=== PATIENT | male | born 1960 | race Caucasian/White ===

== ENCOUNTER 2018-11-07 13:30 | Inpatient (IN) | payer OTHER ==
[~2018-11-07] VITALS: Ht 182.9 cm; Wt 112.3 kg
--- NOTE | ~2018-11-07 | CON ---
[address] [address] CONSULTATION Name: ELVIA MO Room: [address] IN M.R.#: [id number] Admission: 11/07/18 Attend Phys: Octaviano Aragon MD Discharge: Date of : 58 Report #: [id number] THIS REPORT FOR: //name// CC: Hitesh Aragon HISTORY OF PRESENT ILLNESS: The patient is a pleasant 58-year-old gentleman with past medical history significant for hypertension, diabetes, who presented to the hospital with increased blood glucose. The patient went to his primary care physician's office because of progressive weakness and lethargy and was noted to have blood glucose in the 500s. He was recommended to come to the hospital. The patient's spouse at bedside reports that she began noticing a deepening of the color of his eyes. The patient also reports increased pruritus for the last one day. He also reports he had darkening of the color of urine. The patient reports 30-pound weight loss in the last month, but this is primarily attributed to diuresis. The patient was apparently admitted to another hospital with heart failure. PAST MEDICAL HISTORY: Hypertension, hyperlipidemia, diabetes. PAST SURGICAL HISTORY: Nonsignificant. FAMILY HISTORY: There is no family history of colorectal cancer or Chiang related neoplasia. SOCIAL HISTORY: The patient denies smoking, alcohol or recreational drug use. REVIEW OF SYSTEMS: A comprehensive 10-point review of systems is negative except for what is mentioned in the HPI. PHYSICAL EXAMINATION: VITAL SIGNS: Temperature 36.7, pulse rate 77, respirations 16, blood pressure 107/72, pulse ox 100%. GENERAL: The patient is alert, awake, oriented x 3. HEENT: Pupils are equal, round, reactive to light and accommodation. Mucous membranes are moist. There is no congestion. Scleral icterus is present. There is no asterixis. LUNGS: Clear to auscultation bilaterally. CARDIOVASCULAR: Rate and rhythm regular, S1, S2 present. ABDOMEN: Soft. There is no distention, guarding or rigidity. NEUROLOGIC: No focal neurological deficit. LABORATORY DATA: Hemoglobin 13.7, hematocrit 39.9, platelet count 246, WBC count 9.3. Sodium 134, potassium 3.4, chloride 93, bicarbonate 31, BUN 57, creatinine 2.0. His hemoglobin A1c is 10.4, total bilirubin 3.7, direct bilirubin 3.3, alkaline phosphatase 616. INR 1. [place] [address] CONSULTATION Name: ELVIA MO Room: [address] IN [facility]#: [id number] Admission: 11/07/18 Attend Phys: Octaviano Aragon MD Discharge: Date of : 58 Report #: [id number] ASSESSMENT AND PLAN: A pleasant 58-year-old male with past medical history of diabetes, hypertension and hyperlipidemia, who presented to the hospital with hyperglycemia. The patient was incidentally noted to have obstructive jaundice with a bilirubin greater than 3. The patient does not have any abdominal pain. I will get an MRCP to evaluate the cause of his jaundice, and I have placed him n.p.o. for ERCP tomorrow. Further recommendations will be based on the MRCP. By: 1155 [id number] Hobbs MD /nt
--- NOTE | ~2018-11-07 | PROC ---
[address] [address] PROCEDURE REPORT Name: ELVIA MO Room: [address] IN M.R.#: [id number] Admission: 11/07/18 Attend Phys: Octaviano Aragon MD Discharge: 11/12/18 Date of : 58 Report #: [id number] THIS REPORT FOR: //name// For GI report, please see the Provation report in Perceptive 7 content. By: 0653Medical Records Staff ZAK /ISRA
[~2018-11-07 13:30] MED LIST: ALDACTONE25 MG PO; CLEOCIN HCL150 MG PO; COREG25 MG PO; COZAAR 50 MG TA50 MG PO; FLONASE 0.05%50 MCG INH; FLOVENT HFA 1110 MCG NASAL; GLUCOPHAGE XR500 MG PO; GLUCOTROL XL5 MG PO; GLUMETZA500 PO; HYDROCHLOROTH12.5 M1 PO; HYDROCODONE-APA1 TA1 PO; LIPITOR10 MG PO; MINOCIN100 MG PO; NORVASC2.5 MG PO
[2018-11-07 13:40] VITALS: BP 125/67
[2018-11-07] MEDS ORDERED: LO-DOSE ASPIRIN81 M1 PO (13:46)
[2018-11-07] MEDS ORDERED: HYDRALAZINE 2525 MG PO (13:48)
[2018-11-07] MEDS ORDERED: EPLERENONE50 MG PO (13:48)
[2018-11-07] MEDS ORDERED: FARXIGA5 MG PO (13:48)
[2018-11-07] MEDS ORDERED: METOLAZONE 2.52.5 MG PO (13:50)
[2018-11-07] MEDS ORDERED: K-DUR 20 MEQ T20 MEQ PO (13:51)
[2018-11-07] MEDS ORDERED: ENTRESTO 97 MG1 EACH PO (13:52)
[2018-11-07] MEDS ORDERED: DEMADEX20 MG PO (13:52)
[2018-11-07] MEDS ORDERED: TRESIBA FL200 UNIT/1 SUBQ (13:53)
[2018-11-07 14:01] LABS: ABSOLUTE BASOPHILS 0.1 thou/uL (0.0-0.2); ABSOLUTE EOSINOPHILS 0.1 thou/uL (0.0-0.7); ABSOLUTE MONOCYTES 1.3 thou/uL (0.0-1.2); ABSOLUTE NEUTROPHILS 6.8 thou/uL (1.6-8.1); BASOPHILS 1.3 %; EOSINOPHILS 1.1 %; HEMATOCRIT 40.8 % (42.0-52.0); HEMOGLOBIN 13.8 gm/dL (14.0-18.0); LYMPHOCYTES 19.4 %; MCH 28.3 pg (26.0-34.0); MCHC 33.7 g/dL (28.0-37.0); MCV 83.9 fL (80.0-100.0); MONOCYTES 12.1 %; MPV 11.3 fl. (7.2-11.1); NUCLEATED RBCS 0 /100WBC; PLATELET COUNT* 230 thou/uL (150-400); POLYS 66.1 %; RBC 4.86 mil/uL (4.50-6.00); WBC 10.3 thou/uL (4.0-11.0)
[2018-11-07 14:08] LABS: CALCIUM 9.8 mg/dL (8.5-10.1); CREATININE 2.3 mg/dL (0.6-1.3); POTASSIUM 3.7 mmol/L (3.5-5.1)
[2018-11-07 14:09] LABS: ALBUMIN 2.5 g/dL (3.4-5.0); TOTAL BILIRUBIN 4.5 mg/dL (<0.1-1.0); TOTAL PROTEIN 8.7 g/dL (6.4-8.2)
[2018-11-07 14:20] LABS: BE 7.6 mmol/L (-2 to +3); HCO3 32.6 mmol/L (22.0-26.0); PCO2 46.4 mmHg (35.0-45.0); PO2 66.9 mmHg (75.0-100.0); pH 7.464 (7.340-7.450)
[2018-11-07 14:28] LABS: TARGET CELLS 2+
[2018-11-07 14:29] LABS: LARGE PLATELETS MODERATE
[2018-11-07 14:30] LABS: GIANT PLATELETS RARE; PLATELET ESTIMATE ADEQUATE
[2018-11-07 17:09] VITALS: BP 125/67
[2018-11-07 17:39] VITALS: BP 110/78
--- NOTE | 2018-11-07 17:51 | NUR ---
RECEIVED REPORT. PT TRANSFERRED TO ROOM 212 VIA CART. VSS. ADMISSION HISTORY AND ASSESSMENT COMPLETED CHARTED. PT ALERT AND OREITNED. PT ON 2L PER NC. IVF INFUSING PER ORDERS. BG CHECKED. PT DENIES ANY PAIN. PT ORIETNED TO ROOM AND CALL LIGHT. CALL LIGHT IS WITHIN REACH. WILL CONTINUE TO MONTIOR FOR DURATION OF SHIFT.
[2018-11-07 19:12] LABS: APTT 27.1 Seconds (25.0-31.3); PROTIME 10.6 Seconds (9.20-11.50)
[2018-11-07 19:22] LABS: ACETAMINOPHEN < 2 ug/mL (10-30); SALICYLATE < 2.8 mg/dL (2.8-20.0)
--- NOTE | 2018-11-07 23:20 | NUR ---
PT ASSESSMENT COMPLETE. PT IS ALERT & ORIENTED AND ABLE TO VOICE ALL NEEDS. PT IS UP TO BR WITH SBA AND CANE. TRACING SR ON MONITOR. VSS. PT DENIES PAIN, SOA, N/V/D. REFER TO CHARTING FOR DETAILS. HOURLY ROUNDING FOR SAFETY. CLWR.
[2018-11-08] VITALS: BP 132/77
[2018-11-08 02:12] LABS: GLYCOHEMOGLOBIN (HGB A1C) 10.4 % (4.8-5.6)
[2018-11-08 04:00] VITALS: BP 128/79
[2018-11-08 05:08] LABS: ABSOLUTE BASOPHILS 0.1 thou/uL (0.0-0.2); ABSOLUTE EOSINOPHILS 0.1 thou/uL (0.0-0.7); ABSOLUTE LYMPHOCYTES 2.3 thou/uL (0.8-5.3); ABSOLUTE MONOCYTES 0.8 thou/uL (0.0-1.2); BASOPHILS 0.7 %; EOSINOPHILS 1.2 %; HEMATOCRIT 39.9 % (42.0-52.0); HEMOGLOBIN 13.7 gm/dL (14.0-18.0); LYMPHOCYTES 24.3 %; MCH 28.3 pg (26.0-34.0); MCHC 34.4 g/dL (28.0-37.0); MCV 82.3 fL (80.0-100.0); MONOCYTES 8.9 %; MPV 11.2 fl. (7.2-11.1); NUCLEATED RBCS 0 /100WBC; PLATELET COUNT* 246 thou/uL (150-400); POLYS 64.9 %; RBC 4.85 mil/uL (4.50-6.00); RDW-CV 15.9 % (10.5-14.5); WBC 9.3 thou/uL (4.0-11.0)
[2018-11-08 05:25] LABS: ALBUMIN 2.4 g/dL (3.4-5.0); ALKALINE PHOSPHATASE 616 U/L (46-116); ANION GAP 10 mmol/L (7-16); BUN 57 mg/dL (7-18); CALCIUM 9.3 mg/dL (8.5-10.1); CHLORIDE 93 mmol/L (98-107); CHOLESTEROL 254 mg/dL (<200); CO2 31 mmol/L (21-32); DIRECT BILIRUBIN 3.3 mg/dL (<0.1-0.3); GLUCOSE 254 mg/dL (70-99); HDL CHOLESTEROL 31 mg/dL (>40); LDL CHOLESTEROL 193 mg/dL (<100); POTASSIUM 3.4 mmol/L (3.5-5.1); SGOT 37 U/L (15-37); SGPT 50 U/L (30-65); SODIUM 134 mmol/L (136-145); TC:HDL 8.2 Ratio (Not establshd); TOTAL BILIRUBIN 3.7 mg/dL (<0.1-1.0); TOTAL PROTEIN 8.3 g/dL (6.4-8.2); TRIGLYCERIDE 154 mg/dL (<150); VLDL 31 mg/dL (<40)
[2018-11-08 05:29] LABS: SERUM ASSESSMENT CLEAR
[2018-11-08 05:40] LABS: PLATELET ESTIMATE ADEQUATE
[2018-11-08 05:41] LABS: ANISOCYTOSIS 1+; GIANT PLATELETS OCCASIONAL; HYPOCHROMASIA Occasional; POIKILOCYTOSIS 1+; TARGET CELLS Occasional
[2018-11-08 07:51] VITALS: BP 107/72
--- NOTE | 2018-11-08 08:00 | NUR ---
RECEIVED REPORT. ASSUMED CARE OF PT AT 0730. VSS. CARDIAC MONITORING IN PLACE SR. AM ASSESSMENT AND VITALS COMPLETED CHARTED. PT ALERT AND OREINTED. PT ON RA. IV SALINE LOCKED. PT SITTING UP AT EDGE OF BED THIS AM. PT DENIES ANY PAIN OR DISCOMFORT THIS AM. PT INFORMED OF PLAN OF CARE. CALL LIGHT IS WITHIN REACH. WILL CONTINUE TO MONITOR FOR DURATION OF SHIFT.
[2018-11-08 12:30] LABS: URINE BILIRUBIN NEGATIVE (Negative); URINE BLOOD NEGATIVE (Negative); URINE CLARITY CLEAR; URINE COLOR YELLOW; URINE GLUCOSE-RANDOM NEGATIVE (Negative); URINE KETONES NEGATIVE (Negative); URINE LEUKOCYTES-REFLEX NEGATIVE (Negative); URINE NITRITE-REFLEX NEGATIVE (Negative); URINE PROTEIN NEGATIVE (Negative)
--- NOTE | 2018-11-08 15:06 | NUR ---
Pt is A&O. Resides at home with his . Pt states that his completes most ADLs, Pt is able to bath and groom himself, but family is available to assist as needed. Pt has a cane that he uses for mobility. No hx of HH or SNF. CM inquired into why Pt was not taking his insulin at home. Pt stated that the insulin was in the refrigerator, stated that he just did not take it. Pt confirmed that he is normally able to afford his medications without issue. CM spoke with via phone. states that she works and isn't always at home when he is to take his insulin, she stated that he normally takes it as ordered, but stated that me may have missed it d/t not feeling well. confirmed that they are able to afford Pt's medications. CM following.
--- NOTE | 2018-11-08 15:20 | 2DMMODE ---
[place] [address] 2 D/M-MODE ECHOCARDIOGRAM Name: ELVIA MO Room: [address] IN [facility]#: [id number] Admission: 11/07/18 Attend Phys: Octaviano Aragon MD Discharge: Date of : 58 Date of Service: 11/08/18 1520 Report #: [id number] THIS REPORT FOR: //name// ADDENDUM APPROVED REPORT Study performed: 11/08/2018 11:02:16 EXAM: Comprehensive 2D, Doppler, and color-flow Echocardiogram Patient Location: In-Patient Room #: [facility] Status: routine BSA: 2.29 HR: 74 bpm BP: 107/72 mmHg Rhythm: NSR Other Information Study Quality: Good Indications Congestive Heart Failure 2D Dimensions IVSd: 17.39 (7-11mm) LVOT Diam: 21.38 (18-24mm) LVDd: 45.07 mm PWd: 13.84 (7-11mm) Ascending Ao: 35.43 (22-36mm) LVDs: 32.62 (25-40mm) Aortic Root: 32.38 mm Volumes Left Atrial Volume (Systole) LA ESV Index: 40.00 mL/m2 Aortic Valve AoV Peak Nas.: 1.65 m/s AO Peak Gr.: 10.89 mmHg LVOT Max P.02 mmHg AO Mean Gr.: 6.05 mmHg LVOT Mean P.07 mmHg LVOT Max V: 1.32 m/s AO V2 VTI: 25.56 cm LVOT Mean V: 0.78 m/s OLESYA (VTI): 3.61 cm2 LVOT V1 VTI: 25.68 cm Mitral Valve E/A Ratio: 1.11 MV Decel. Time: 194.76 ms MV E Max Nas.: 0.80 m/[place] [address] 2 D/M-MODE ECHOCARDIOGRAM Name: ELVIA MO Room: [address] IN .R.#: [id number] Admission: 11/07/18 Attend Phys: Octaviano Aragon MD Discharge: Date of : 58 Date of Service: 11/08/18 1520 Report #: [id number] MV PHT: 56.48 ms MVA (PHT): 3.90 cm2 TDI E/Lateral E': 8.89 E/Medial E': 16.00 Medial E' Nas.: 0.05 m/s Lateral E' Nas.: 0.09 m/s Pulmonary Valve PV Peak Nas.: 1.02 m/s PV Peak Gr.: 4.19 mmHg Tricuspid Valve RAP Estimate: 5.00 mmHg TR Peak Gr.: 29.18 mmHg RVSP: 34.00 mmHg PA Pressure: 34.00 mmHg Left Ventricle The left ventricle is normal size. There is normal LV segmental wall motion. Moderate concentric left ventricular hypertrophy. Left ventricular systolic function is normal. LVEF is 55-60%. Transmitral Doppler flow pattern suggests impaired LV relaxation. Right Ventricle Right ventricle is mildly dilated. The right ventricular systolic function is normal. Atria Left atrium is moderately dilated. Right atrium is moderately dilated. Aortic Valve The aortic valve is normal in structure. No aortic regurgitation is present. There is no aortic valvular stenosis. Mitral Valve The mitral valve is normal in structure. Trace mitral regurgitation. No evidence of mitral valve stenosis. Tricuspid Valve The tricuspid valve is normal in structure. Trace tricuspid regurgitation. Mild pulmonary hypertension. Pulmonic Valve The pulmonary valve is normal in structure. There is no pulmonic valvular [place] [address] 2 D/M-MODE ECHOCARDIOGRAM Name: ELVIA MO Room: [address] IN [facility]#: [id number] Admission: 11/07/18 Attend Phys: Octaviano Aragon MD Discharge: Date of : 58 Date of Service: 11/08/18 1520 Report #: [id number] Great Vessels The aortic root is normal in size. IVC is normal in size and collapses >50% with inspiration. Pericardium There is no pericardial effusion. <Conclusion> The left ventricle is normal size. Moderate concentric left ventricular hypertrophy. Left ventricular systolic function is normal. LVEF is 55-60%. Transmitral Doppler flow pattern suggests impaired LV relaxation. Trace mitral regurgitation. Trace tricuspid regurgitation. Mild pulmonary hypertension. IVC is normal in size and collapses >50% with inspiration. Right ventricle is mildly dilated. Left atrium is moderately dilated. Right atrium is moderately dilated. <ELECTRONICALLY SIGNED> By: Urban Perrin MD, FACC 11/08/18 1520 1520 1520 Urban Perrin MD, FACC /INF
--- NOTE | 2018-11-08 16:44 | EKG ---
[place] [address] ELECTROCARDIOGRAM REPORT Name: ELVIA MO Room: [address] ADM IN M.R.#: [id number] Admission: 11/07/18 Attend Phys: Octaviano Aragon MD Discharge: Date of : 58 Report #: [id number] THIS REPORT FOR: //name// [facility] Test Date: 2018-11-08 Test Time: 14:06:19 Pat Name: ELVIA MO Department: Room: [address] Gender: M Chip Mucker: : 1960 Requested By: Guero Hobbs Order Number: [id number] Reading MD: Roe Harvey Measurements Intervals [place] Rate: 75 P: 51 AL: 169 QRS: 29 QRSD: 86 T: 149 QT: 441 QTc: 493 Interpretive Statements Sinus rhythm Probable left atrial enlargement LVH with secondary repolarization abnormality Anterior ST elevation, probably due to LVH Borderline prolonged QT interval Compared to ECG 05/16/2017 15:13:30 No significant changes Electronically Signed On 11-08-2018 16:43:58 CLERICAL SUPPORT SPECIALIST by Roe Harvey [email or web address] <ELECTRONICALLY SIGNED> By: Roe Harvey MD, [facility] 11/08/18 1643 1406 1406 Roe Harvey MD, [facility] /EPI
[2018-11-08 17:14] VITALS: BP 181/103
--- NOTE | 2018-11-08 19:02 | NUR ---
VSS. CARDIAC MONTIORING IN PLACE WITH NO CHANGES THIS SHIFT. PT MEETING GOALS. PT ON RA. IV SLAINE LOCKED. PT HAS NO PAIN OR DISCOMFORT THIS SHFIT. PT IS UP WITH ASSISTANCE. PT COMPLETED MRCP TODAY. PLAN TO HAVE ERCP IN AM. PT INFORMED OF PLAN OF CARE. CALL LIGHT IS WITHIN REACH. WILL CONTINUE TO [place].
[2018-11-08 19:10] VITALS: BP 114/73
--- NOTE | 2018-11-08 21:16 | NUR ---
PT ASSESSMENT COMPLETE. VSS. PT IS MED/SURG STATUS, NOT MONITORED ON TELEMETRY. PT DENIES PAIN, SOA, N/V/D. FALL PRECAUTIONS IN PLACE/ CLWR. HOURLY ROUNDING FOR SAFETY. REFER TO COMPUTER CHARTING FOR FURTHER DETAILS.
[2018-11-09 00:12] VITALS: BP 149/82
[2018-11-09 02:07] LABS: HEPATITIS B SURFACE AG Negative (Negative)
--- NOTE | 2018-11-09 05:00 | NUR ---
PT SLEPT WELL FOR MOST OF THIS SHIFT AWAKENING AT APPROXIMATELY 0330 WANTING WATER. PT REEDUCATED THAT HE IS NPO FOR PROCEDURE IN THE MORNING, PT VOICED UNDERSTANDING. PT THEN CALLED OUT THAT HE HAD VOMITTED. PT DID HAVE SMALL AMOUNT OF EMESIS. PT DENIES ANYTHING FOR NAUSEA AT THAT TIME. NO OTHER CONCERNS. HOURLY ROUNDING FOR SAFETY. CLWR.
[2018-11-09 08:00] VITALS: BP 97/60
--- NOTE | 2018-11-09 08:39 | NUR ---
ASSUMED PT CARE AT 0700, PT IN NPO STATUS FOR PROCEDURE THIS MORNING. FALL PRECAUTIONS IN PLACE. PT IS MED SURG STATUS, NO TELE MONITORING. ASSEMENT COMPLETE. TRANSPORTATION PRESENT TO TAKE PT TO ULTRASOUND.
[2018-11-09 08:44] LABS: HEMATOCRIT 42.2 % (42.0-52.0); HEMOGLOBIN 14.4 gm/dL (14.0-18.0); MCH 28.2 pg (26.0-34.0); MCHC 34.1 g/dL (28.0-37.0); MCV 82.9 fL (80.0-100.0); MPV 11.2 fl. (7.2-11.1); RBC 5.09 mil/uL (4.50-6.00); RDW-CV 15.7 % (10.5-14.5); WBC 10.8 thou/uL (4.0-11.0)
[2018-11-09 09:03] LABS: ALBUMIN 2.5 g/dL (3.4-5.0); CALCIUM 9.3 mg/dL (8.5-10.1); CREATININE 2.2 mg/dL (0.6-1.3); TOTAL BILIRUBIN 3.5 mg/dL (<0.1-1.0); TOTAL PROTEIN 8.5 g/dL (6.4-8.2)
[2018-11-09 09:04] LABS: POTASSIUM 3.3 mmol/L (3.5-5.1)
[2018-11-09 14:19] LABS: PROTIME 10.7 Seconds (9.20-11.50)
[2018-11-09 16:03] VITALS: BP 107/63
--- NOTE | 2018-11-09 18:55 | NUR ---
PT IN BED, HOB ELEVATED, CALL LIGHT IN REACH, FALL PRECAUTIONS IN PLACE. PT HAD STATUS CHANGE FROM MED SURG TO TELEMETRY, NURSES MEDICAL ASSISTANTS PHLEBOTOMISTS PLACED, TRACING SINUS RHYTHM D/T LOW POTASSIUM AND HYPOTENSIVE. PT WENT TO PREOP AT APPROXIMATELY 1045 FOR ERCP, SUPPOSITORY GIVEN PRIOR TO PROCEDURE, CONSENTS SIGNED BY PTS . PT RETURNED TO UNIT AT APPROX 1430. CARVEDILOL HELD D/T PTS BP. PT STARTED ON NS BOLUS AND DRIP D/T HYPOTENSIVE AND LOW POTASSIUM. PT GROGGY FROM PROCEDURE BUT ABLE TO BE AROUSED TO EAT DINNER AND TAKE MEDS. REQUESTING O2 AT 2LPM FOR COMFORT.
[2018-11-09 20:00] VITALS: BP 119/80
--- NOTE | 2018-11-09 23:00 | NUR ---
PT DROWSY, AROUSABLE TO VERBAL STIMULI, UNABLE TO VOID SINCE RETURN TO FLOOR THIS EVENING POST ERCP AND EGD PROCEDURE AT APROX 1430, BLADDER SCAN DONE, 541CC URINE RESIDUAL PER BLADDER SCAN, ASSIST X2 TO STAND BY BED TO VOID, PT STATES UNABLE TO VOID, STATES DOESNT FEEL THE NEED TO URINATE, PAGED DR NEELY VIA [employer], UPDATED ON STATUS, NEW ORDER FOR LENZ CATHETER TO BE PLACED, COMMUNICATED NEW ORDER WITH PT, LENZ CATHETER PLACED PER ORDER, 650CC DARK JANAE IMMEDIATE URINE RETURN NOTED.
[2018-11-10 00:15] VITALS: BP 168/88
[2018-11-10 04:00] VITALS: BP 156/94
[2018-11-10 04:53] LABS: HEMATOCRIT 40.2 % (42.0-52.0); HEMOGLOBIN 13.5 gm/dL (14.0-18.0); MCH 27.8 pg (26.0-34.0); MCHC 33.6 g/dL (28.0-37.0); MCV 82.8 fL (80.0-100.0); MPV 10.8 fl. (7.2-11.1); RBC 4.85 mil/uL (4.50-6.00); RDW-CV 15.7 % (10.5-14.5); WBC 14.9 thou/uL (4.0-11.0)
[2018-11-10 05:04] LABS: ALBUMIN 2.2 g/dL (3.4-5.0); ALKALINE PHOSPHATASE 524 U/L (46-116); ANION GAP 8 mmol/L (7-16); BUN 72 mg/dL (7-18); CALCIUM 9.1 mg/dL (8.5-10.1); CHLORIDE 95 mmol/L (98-107); CO2 32 mmol/L (21-32); CREATININE 2.4 mg/dL (0.6-1.3); GLUCOSE 214 mg/dL (70-99); MAGNESIUM 2.2 mg/dL (1.8-2.4); POTASSIUM 3.8 mmol/L (3.5-5.1); SGOT 47 U/L (15-37); SGPT 45 U/L (30-65); SODIUM 135 mmol/L (136-145); TOTAL BILIRUBIN 5.7 mg/dL (<0.1-1.0); TOTAL PROTEIN 7.7 g/dL (6.4-8.2)
[2018-11-10 05:21] LABS: AMMONIA < 10 umol/L (11-32)
--- NOTE | 2018-11-10 06:56 | NUR ---
SLOW PROGRESSING TOWARDS GOALS, LENZ CATHETER PLACED FOR URINARY RETENTION, ZOFRAN 4MG IVP GIVEN X1 FOR NAUSEA, DROSWY FIRST PART OF NOC, AWAKE, ALERT AND CONVERSATIVE AFTER 0100, 10% DINNER MEAL CONSUMED, HS SNACK PROVIDED BEFORE SCHEDULED LANTUS GIVEN, REQUESTED AND CONSUMED BOX LUNCH DURING NOC, LENZ CATHETER PATENT TO DD 1300 CC DARK JANAE URINE. USING CALL LIGHT FOR NEEDS, NS 100CC/HR VIA INFUSION PUMP. OXYGEN 2L PER NC, DENIES SOA, USING CALL LIGHT FOR NEEDS, WANTS, AND OOB, CALL LIGHT REMAINS IN REACH.
[2018-11-10 08:30] VITALS: BP 130/85
[2018-11-10 12:00] VITALS: BP 129/71
[2018-11-10 16:00] VITALS: BP 112/65
--- NOTE | 2018-11-10 18:12 | NUR ---
ASSUMED PT CARE AT 0730, FULL ASSESMENT DONE CHARTED. PT C/O SOME PAIN DUE TO LENZ THIS AM, DENIES ANY OTHER PAIN, LENZ REMOVED, PT UNALBE TO VOID FOR SEVERAL HOURS. BLADDER SCAN AT APPROX 1530 IS 571CC RETAINED, PT ABLE TO VOID 300CC AT THIS TIME. PTS VSS, SR/BBB ON THE MONITOR. PT VERY UNSTEADY ON HIS FEET, NEEDS 1 ASSIST WHEN AMBULATING. PT AND EDUCATED ON PLAN OF CARE AND ON DIET NEEDS AND BLOOD SUGAR CHECKS. PT NEEDS MORE EDUCATION, NOT VERY RECEPTIVE TO IT.
[2018-11-10 20:15] VITALS: BP 150/79
[2018-11-10 23:05] LABS: IgA 503 mg/dL (90-386); IgG 2150 mg/dL (700-1600); IgM 115 mg/dL (20-172)
--- NOTE | 2018-11-10 23:29 | NUR ---
INITlAL ASSESMENT COMPLETED AT 2014. PT RESTING IN BED WATCHING mmCHANNEL GAME AT THAT TIME. PT DENIED PAIN OR DISCOMFORT. PT'S ACCU CHECK AT 2100 225. PT RECIEVED 10 UNITS LISPRO PER SLIDING SCALE AND 15 UNITS LANTUS. PT'S HEART RATE AND BLOOD PRESSURE WITHIN DEFINED LIMITS. O2 SAT 95% ON ROOM AIR. HS MEDS GIVEN ORDERED PER EMAR. CALL LIGHT IN REACH, PT USING APPROPRIATELY.
[2018-11-11] VITALS (7 sets, daily range): BP systolic 118–170; BP diastolic 71–88
[2018-11-11 05:02] LABS: HEMOGLOBIN 13.6 gm/dL (14.0-18.0); MCH 28.3 pg (26.0-34.0); MCV 83.1 fL (80.0-100.0); MPV 10.5 fl. (7.2-11.1); RBC 4.81 mil/uL (4.50-6.00); RDW-CV 15.8 % (10.5-14.5)
[2018-11-11 05:11] LABS: ALBUMIN 2.5 g/dL (3.4-5.0); CREATININE 2.1 mg/dL (0.6-1.3); MAGNESIUM 2.3 mg/dL (1.8-2.4); POTASSIUM 3.8 mmol/L (3.5-5.1); TOTAL BILIRUBIN 3.7 mg/dL (<0.1-1.0); TOTAL PROTEIN 8.4 g/dL (6.4-8.2)
--- NOTE | 2018-11-11 05:24 | NUR ---
RECIEVED ABG RESULTS FROM RT. PH 7.42 PCO2 36.1 PO2 300 HCO3 22.9. RT TITRATING DOWN OXYGEN.
--- NOTE | 2018-11-11 06:56 | NUR ---
PT'S RENAL FUNCTION STILL ELEVATED. BUN 65 CREATININE 2.1 GFR 32. PT VOIDED 1000 ML PLUS VOID UNMEASURED DURING NIGHT. VITAL SIGNS WITHIN NORMAL LIMITS. PT UP IN CHAIR WATCHING TELEVISION AT THIS TIME. WILL CONTINUE TO MONITOR.
--- NOTE | 2018-11-11 19:30 | NUR ---
RECEIVED REPORT AND ASSUMED CARE OF PT, ASSESSMENT COMPLETED. SITTING UP IN CHAIR WATCHING TV. TELEMETRY ON SHOWING SR. DISCUSSED LIVER BX IN AM. WILL CONT TO MONITOR AND ASSIST NEEDED.
--- NOTE | 2018-11-11 20:28 | NUR ---
I ASSUMED CARE OF THE PATIENT AT 0700. HE IS ALERT AND ORIENTED X4 AND IS UP WITH ASSIST OF ONE. BED IS IN THE LOW LOCKED POSITION AND CALL LIGHT IS IN REACH. HOURLY ROUNDING WAS COMPLETED AND PATIENT NEEDS WERE MET. PAIN IS DENIED. HE IS STILL ON TRACK FOR AN ULTRASOUND GUIDED LIVER BIOPSY ON 11/12/18 AM. BLOOD SUGAR IS MANAGED WITH SLIDING SCALE INSULIN. HE USES A URINAL AT THE BEDSIDE. PATIENT REFUSED TO BATHE. WILL CONTINUE TO MONITOR.
--- NOTE | 2018-11-12 00:45 | NUR ---
PT UP TO SINK AND WASHED OFF. PT HAS ATE SEVERAL SNACKS AND BOX MEAL. NPO AFTER THIS TIME FOR US LIVER BX IN AM.
[2018-11-12 04:00] VITALS: BP 159/83
[2018-11-12 04:29] LABS: ABSOLUTE BASOPHILS 0.1 thou/uL (0.0-0.2); ABSOLUTE EOSINOPHILS 0.1 thou/uL (0.0-0.7); ABSOLUTE LYMPHOCYTES 2.1 thou/uL (0.8-5.3); ABSOLUTE MONOCYTES 1.3 thou/uL (0.0-1.2); ABSOLUTE NEUTROPHILS 5.5 thou/uL (1.6-8.1); BASOPHILS 0.8 %; EOSINOPHILS 1.4 %; HEMATOCRIT 39.2 % (42.0-52.0); HEMOGLOBIN 13.2 gm/dL (14.0-18.0); LYMPHOCYTES 22.7 %; MCH 27.9 pg (26.0-34.0); MCHC 33.7 g/dL (28.0-37.0); MCV 82.9 fL (80.0-100.0); MONOCYTES 14.4 %; MPV 10.4 fl. (7.2-11.1); NUCLEATED RBCS 0 /100WBC; PLATELET COUNT* 281 thou/uL (150-400); POLYS 60.7 %; RBC 4.73 mil/uL (4.50-6.00); RDW-CV 15.4 % (10.5-14.5); WBC 9.1 thou/uL (4.0-11.0)
[2018-11-12 04:38] LABS: PROTIME 10.6 Seconds (9.20-11.50)
[2018-11-12 04:40] LABS: ALBUMIN 2.4 g/dL (3.4-5.0); CALCIUM 8.8 mg/dL (8.5-10.1); CREATININE 1.8 mg/dL (0.6-1.3); DIRECT BILIRUBIN 2.7 mg/dL (<0.1-0.3); MAGNESIUM 2.4 mg/dL (1.8-2.4); POTASSIUM 3.9 mmol/L (3.5-5.1)
--- NOTE | 2018-11-12 06:08 | NUR ---
SLEPT WELL AFTER 0100. NPO AFTER THIS TIME FOR LIVER BX TODAY. NO CHANGE IN ASSESSMENT. TELEMETRY CONT TO SHOW SR. HS GOALS OF REST AND SAFETY ACHIEVED. HOURLY ROUNDING OBSERVED.
--- NOTE | 2018-11-12 08:10 | NUR ---
RECEIVED REPORT. ASSUMED CARE OF PT AT 0730. VSS. CARDIAC MONITORING IN PLACE SR. AM ASSESSMENT AND VITALS COMPLETED CHARTED. PT ALERT AND ORIETNED. PT ON RA. IV SALINE LOCKED. PT NPO PENDING LIVER BIOPSY THIS SHIFT. PT SIGNED CONSENT FORM. PT DENEIS ANY PAIN. PT INFORMED OF PLAN OF CARE. PT COMMUNICATES UNDERSTANDING. CALL LIGHT IS WITHIN REACH. WILL CONTINUE TO MONITOR FOR DURATION OF SHIFT.
[2018-11-12 08:11] VITALS: BP 171/98
[2018-11-12 09:40] VITALS: BP 187/93
[2018-11-12 09:50] VITALS: BP 184/94
[2018-11-12 09:55] VITALS: BP 142/74
[2018-11-12 11:15] VITALS: BP 177/86
--- NOTE | 2018-11-12 11:22 | CON ---
[address] [address] CONSULTATION Name: MOEVLIA Room: [address] IN M.R.#: [id number] Admission: 11/07/18 Attend Phys: Octaviano Aragon MD Discharge: Date of : 58 Report #: [id number] THIS REPORT FOR: //name// CC: Hitesh Aragon CONSULTING PHYSICIAN: Dr. Aragon. REASON FOR CONSULTATION: Acute kidney injury. HISTORY OF PRESENT ILLNESS: The patient is a 58-year-old gentleman who came in with jaundice and elevated blood sugars. He was hospitalized at [facility] previously and is currently being followed by GI. He underwent an EGD and ERCP, which showed some portal gastropathy, but was essentially nonrevealing and workup is ongoing as per GI. The patient himself is somnolent, but arousable, has no specific complaints. He had admission creatinine of 2.3 and is 2.2 today. On 10/21/2018, creatinine was 1.5. He appears to be comfortable at present time. REVIEW OF SYSTEMS: Constitutional, psych, heme, eyes, ENT, respiratory, cardiac, GI, , endocrine, all negative except as documented above and as best can be ascertained. PAST MEDICAL HISTORY: Insulin-dependent diabetes, dyslipidemia, history of CHF. SOCIAL HISTORY: No tobacco. FAMILY HISTORY: Not pertinent in this 58-year-old gentleman. CURRENT MEDICATIONS: Reviewed. PHYSICAL EXAMINATION: VITAL SIGNS: Blood pressure 97/60, pulse 67, temperature 36.7. GENERAL: No acute distress. EYES: Opens eyes. EARS: Externally normal. CARDIOVASCULAR: Regular rate. LUNGS: Diminished breath sounds. ABDOMEN: Soft. MUSCULOSKELETAL: Nontender. PSYCHIATRY: Awakens, but very somnolent. LABORATORY DATA: White cell count 10.8, hemoglobin 14.4, platelets 273. Sodium 134, potassium 3.3, chloride 94, bicarbonate 34, BUN 65, creatinine 6.2, glucose 219, calcium 9.3, magnesium 2, albumin 2.5. ASSESSMENT: [place] [address] CONSULTATION Name: ELVIA MO Room: [address] IN [facility]#: [id number] Admission: 11/07/18 Attend Phys: Octaviano Aragon MD Discharge: Date of : 58 Report #: [id number] 1. Acute kidney injury with admission creatinine of 2.3. He has been in significant congestive heart failure and jaundice. In 04/2017, creatinine was 1; 10/21/2018, creatinine was 1.5 at [facility]. His ejection fraction is noted to be 55-60%. Hep B and C were negative. Kidneys were okay on ultrasound. UA was nonrevealing. He was on valsartan, eplerenone, torsemide, metolazone as an outpatient. 2. Mild hyponatremia. Sodium 134 on 11/09/2018. 3. Hypokalemia. Potassium 3.37 on 11/09/2018. 4. Hypoalbuminemia with an albumin of 1.5. 5. Insulin-dependent diabetes. 6. History of obstructive sleep apnea. 7. History of congestive heart failure. PLAN: 1. Renal function is presently holding steady. His UA and ultrasound are nonrevealing. Would continue with current medical management. 2. Replace potassium. Diuretics and valsartan, currently on hold, will be checked again in a.m. Thank you for requesting my opinion in the care and management of this patient. <ELECTRONICALLY SIGNED> By: Britney Nguyen MD 11/12/18 1122 1550 [id number] Nguyen MD /nt
--- NOTE | 2018-11-12 13:03 | NUR ---
PT recommending Pt dc with a walker, Pt refusing, stating "I have a cane, I don't need a walker."
[2018-11-12] MEDS ORDERED: DEMADEX20 MG PO (14:01)
[2018-11-12] MEDS ORDERED: NOVOLOG FL100 UNIT/M SUBQ (14:12)
--- NOTE | 2018-11-12 14:46 | NUR ---
DISCHARGE ORDERS RECEIVED AND PREPARED. IV AND CARDIAC MONTIORING DISCONTINUED. PT AND SPOUSE EDUCATEDON DISCHARGE INSTRCTUIONS. ALL QUESTIONS AND CONCNERS ANSWERED AT THIS TIME. PT GIVEN COPY OF DISCHARGE PAPERWORK AND NEW SCRIPTS. PT'S PERSONAL BELONGINGS GATHERED AND SENT HOME WITH PT. PT ESCORTED OFF UNIT WITH NURSING STAFF VIA W/C. PT LEFT IN PRIVATE VEHICLE.
--- NOTE | 2018-11-12 16:38 | NUR ---
Pt discharged to home today, ordered HH. CM was not aware of HH orders. Contacted Pt and to inform of orders and arrange HH. Per , Pt does not want HH. CM encouraged /Pt to contact CM tomorrow if they change their minds.
[2018-11-12 17:12] LABS: GLOBULIN TOTAL 4.5 g/dL (2.2-3.9); M-SPIKE Not Observed g/dL (Not Observed)
[2018-11-12 19:09] LABS: ANA INTERPRETATION Negative (())
--- NOTE | 2018-11-14 13:23 | PATH ---
[address] [address] PATHOLOGY RPT PROCEDURE Name: ELVIA MO Room: [address] IN M.R.#: [id number] Admission: 11/07/18 Date of : 58 Discharge: 11/12/18 Report #: [id number] Path Case #: [id number] [facility] Accession Number: [id number] . 01 Material submitted: . LIVER BIOPSY . 01 Clinician provided ICD-10: N17.9 K83.1 . 01 Clinical history: . Cholestatic jaundice of unclear etiology. . . 02 Diagnosis: Liver biopsy: - Benign liver with mild to moderate chronic portal and lobular inflammation and perisinusoidal/periportal fibrosis (score 2). See comment. LBQ/11/13/2018 . 02 Comment: The biopsies show benign liver without significant steatosis and with mild to moderate chronic inflammation in association with scattered neutrophils within portal tracts and lobules and interface activity is noted. Bile ducts are present and there appears to be ductular proliferation without granulomas or giant cells seen. A panel of properly controlled special stains performed on each of A1, A2 and A3 all show the following results: . Iron - No increase of stainable iron PAS with and without diastase - No PAS diastase resistant globules Reticulin and trichrome - Perisinusoidal and periportal fibrosis . This case will be submitted to the [facility], Department of Hepatopathology in consultation and an addendum report will be issued. (FIDELIA/db; 11/13/2018) . 02 Electronically signed: . Nick Olivier MD, Pathologist NPI- [id number] . 01 Gross description: . Received in formalin labeled "Elvia Mo, liver BX," are 7 distinct needle cores of delarosa soft tissue ranging from 0.3-1.4 cm in length and measuring less than 0.1 cm each in diameter. The specimen is submitted entirely in cassettes A1 through A3. (TSD; 11/12/2018) [place] [address] PATHOLOGY RPT PROCEDURE Name: ELVIA MO Room: [address] DIS IN M.R.#: [id number] Admission: 11/07/18 Date of : 58 Discharge: 11/12/18 Report #: [id number] Path Case #: [id number]/TOB . 02 Pathologist provided ICD-10: K74.0, K76.9 . 02 CPT . 463480, 599196, 147254, 585575, 035729, 389255 Specimen Comment: A courtesy copy of this report has been sent to Specimen Comment: [phone], , , . Specimen Comment: Report sent to , , and Specimen Comment: Specimen Comment: A duplicate report has been generated due to demographic updates. Performed at: 01 [facility] [address], [place], [place] [id number] MD Catarino Sauceda MD Phone: [phone] Performed at: [address] [facility] [place] [address] [address], [place], [place] [id number] MD Nick Olivier MD Phone: [phone]
== END 2018-11-12 14:50 | disposition home or self-care (01) | DRG 444 ==
LOC: M.ERS 13:30 → M.2W 15:12 → M.TBA-ER 15:12 → M.2W 17:20
PROVIDERS: Internal Medicine; Internal Medicine Gastroenterology; Personal Emergency Response Attendant; ADMIT Family Medicine
PROC: 0DJ08ZZ Inspection of Upper Intestinal Tract, Via Natural or Artificial Opening Endoscopic (ICD-10-PCS; principal; 2018-11-09)
PROC: 0FJB8ZZ Inspection of Hepatobiliary Duct, Via Natural or Artificial Opening Endoscopic (ICD-10-PCS; principal; 2018-11-09)
PROC: 0FB13ZX Excision of Right Lobe Liver, Percutaneous Approach, Diagnostic (ICD-10-PCS; 2018-11-12)
DX: K83.1 Obstruction of bile duct (principal); E11.00 Type 2 diabetes mellitus with hyperosmolarity without nonketotic hyperglycemic-hyperosmolar coma (NKHHC); N17.9 Acute kidney failure, unspecified; E87.1 Hypo-osmolality and hyponatremia; I13.0 Hypertensive heart and chronic kidney disease with heart failure and stage 1 through stage 4 chronic kidney disease, or unspecified chronic kidney disease; K76.6 Portal hypertension; N18.4 Chronic kidney disease, stage 4 (severe); I50.32 Chronic diastolic (congestive) heart failure; E44.1 Mild protein-calorie malnutrition; E11.65 Type 2 diabetes mellitus with hyperglycemia; E80.6 Other disorders of bilirubin metabolism; I11.0 Hypertensive heart disease with heart failure; E11.22 Type 2 diabetes mellitus with diabetic chronic kidney disease; K31.89 Other diseases of stomach and duodenum; E87.6 Hypokalemia; G47.33 Obstructive sleep apnea (adult) (pediatric); E78.5 Hyperlipidemia, unspecified; E86.0 Dehydration; I95.2 Hypotension due to drugs; T50.2X5A Adverse effect of carbonic-anhydrase inhibitors, benzothiadiazides and other diuretics, initial encounter; Y92.89 Other specified places as the place of occurrence of the external cause; Z79.84 Long term (current) use of oral hypoglycemic drugs; Z79.82 Long term (current) use of aspirin; Z79.4 Long term (current) use of insulin; Z79.899 Other long term (current) drug therapy; Z82.49 Family history of ischemic heart disease and other diseases of the circulatory system; Z68.33 Body mass index [BMI] 33.0-33.9, adult